=== PATIENT | female | born 1945 | race Two or more races ===

== ENCOUNTER 2018-01-16 23:06 | Inpatient (IN) | payer MEDICARE, OTHER ==
[~2018-01-16] VITALS: Ht 152.4 cm; Wt 41.7 kg
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
[2018-01-17] MEDS ORDERED: MAGNESIUM HYDROXIDE 30 ML UDC PO PRN
[2018-01-17] MEDS ORDERED: MAG HYDROX/AL HYDROX/SIMETH 30 ML UDC PO PRN
[2018-01-17] MEDS ORDERED: clonazePAM 0.5 MG TABLET PO PRN
[2018-01-17] MEDS ORDERED: ACETAMINOPHEN 325 MG TABLET PO PRN
--- NOTE | 2018-01-17 00:05 | NUR ---
GPS RN NOTE: PATIENT REQUESTED SNACKS AND GIVEN TURKEY SANDWICH, CRACKERS, AND APPLE JUICE. PATIENT THEN WAS ABLE TO SHOWER WITH ASSISTANCE OF TWO PRECISION LAYOUT WORKER. PATIENT THEN ASSISTED TO BED, WILL CONTINUE TO MONITOR FOR SAFETY.
[2018-01-17 02:39] VITALS: BP 117/71
[2018-01-17 08:00] VITALS: BP 127/77
[2018-01-17 10:35] LABS: ALANINE AMINOTRANSFERASE 29 U/L (12-78); ALBUMIN 2.2 g/dL (3.4-5.0); ALKALINE PHOSPHATASE 98 U/L (46-116); ASPARTATE AMINOTRANSFERASE 27 U/L (15-37); BILIRUBIN,TOTAL 0.7 mg/dL (0.2-1.0); CALCIUM, SERUM 8.1 mg/dL (8.5-10.1); CARBON DIOXIDE 28 mmol/L (21-32); CHLORIDE 100 mmol/L (98-107); CREATININE 0.9 mg/dL (0.6-1.3); GLUCOSE 149 mg/dL (74-106); POTASSIUM 3.8 mmol/L (3.5-5.1); SODIUM SERUM 135 mmol/L (136-145); TOTAL PROTEIN, SERUM 5.5 g/dL (6.4-8.2); UREA NITROGEN, BLOOD 9 mg/dL (7-18)
[2018-01-17 10:37] LABS: CHOLESTEROL 150 mg/dL (<200); HDL CHOLESTEROL 85 mg/dL (40-60); LDL 60 mg/dL (0-99); TRIGLYCERIDES 52 mg/dL (30-150)
[2018-01-17 13:50] LABS: BASOPHILS % (AUTO) 0.3 % (0.0-2.0); EOSINOPHILS % (AUTO) 0.4 % (0.0-6.0); HEMATOCRIT 42 % (33-45); HEMOGLOBIN 13.7 g/dL (11.5-14.8); MEAN CORPUSCULAR HEMOGLOBIN 35 PG (26.0-33.0); MEAN CORPUSCULAR HGB CONC 33 g/dl (31.0-36.0); MEAN CORPUSCULAR VOLUME 108 fL (82-100); MONOCYTES # (AUTO) 0.6 /CMM (0.1-1.30); MONOCYTES % (AUTO) 5.8 % (2.0-12.0); NEUTROPHILS # (AUTO) 7.2 /CMM (1.8-8.9); NEUTROPHILS % (AUTO) 73.5 % (43.0-81.0); PLATELET COUNT (AUTO) 285 /CMM (150-450); RDW COEFFICIENT OF VARIATION 15.4 (11.5-15.0); RED BLOOD CELL COUNT(AUTO) 3.89 MIL/uL (4.0-5.2); WHITE BLOOD COUNT (AUTO) 9.8 K/uL (4.3-11.0)
--- NOTE | 2018-01-17 14:47 | NUR ---
FRANKIE contacted Ellie JEFFERSON from [facility] Behavioral Health Crisis Team to request additional collateral information. Ellie provided FRANKIE with Davida Sosa [facility] socially responsible investment adviser [phone] who contacted crisis team for evaluation. Per Ellie, pt has been evicted from home and has no known family.
--- NOTE | 2018-01-17 14:55 | NUR ---
FRANKIE contacted Davida Sosa APS social media assistant [phone] for collateral information. Unable to reach FRANKIE left voicemail for call back. Addendum: 01/17/18 at 1542 by IMANI DAVID Davida Sosa is a pt assigned nurse through [facility] APS social media assistant is Ellie Ramirez [phone]. Addendum: 01/18/18 at 1601 by IMANI DAVID Davida Sosa Public Health Nurse
--- NOTE | 2018-01-17 15:41 | NUR ---
INITIAL DISCHARGE NOTE: Pt was evicted from home on 01/16/18 and is now homeless per [facility] social media intern and [facility] behavioral Health Crisis Team. Pt needs placement, SW will help form a safe and proper discharge in collaboration with .
[2018-01-17 16:00] VITALS: BP 117/73
--- NOTE | 2018-01-17 16:01 | NUR ---
RN-CO: JOSH VAUGHAN MADE AWARE OF PT'S BNP.
--- NOTE | 2018-01-17 18:47 | NUR ---
GPS/RN PATIENT REFUSED SHOWER THROUGHOUT SHIFT.
--- NOTE | 2018-01-17 19:36 | NUR ---
PATIENT REFUSED AN ECHOCARDIOGRAM AND DUPLEX VENOUS LOWER EXT BI TESTS. INFORMED ATTENDING NURSE (RAMILA). NURSE ADVISED TO TRY AGAIN TOMORROW.
[2018-01-17 20:00] VITALS: BP 108/64
[2018-01-17] MEDS: OLANZAPINE 5 MG/TAB.RAPDIS PO SCH (21:14)
[2018-01-18 08:30] VITALS: BP 112/63
--- NOTE | 2018-01-18 09:21 | NUR ---
RN-CO: CALLED DR LEROY FOR NEURO CONSULT. SPOKE W/ ELVIS.
--- NOTE | 2018-01-18 10:58 | NUR ---
[facility] Address: [address] [place] [address] fax: .
[2018-01-18 12:31] LABS: THYROID STIMULATING HORMONE 4.21 uIU/mL (0.358-3.74)
--- NOTE | 2018-01-18 16:01 | NUR ---
SW was contacted by pts APS perinatal social worker is Ellie aRmirez [phone] who informed SW that pt needs SSI reinstated once she is placed at a SNF. SW informed APS FRANKIE that she would notify her with discharge plan.
[2018-01-18 16:22] VITALS: BP 135/81
[2018-01-18 20:00] VITALS: BP 110/69
[2018-01-18] MEDS: OLANZAPINE 5 MG/TAB.RAPDIS PO SCH (21:11)
--- NOTE | 2018-01-19 07:07 | NUR ---
NEED URINE SPECIMEN, UNABLE TO COLLECT SPECIMEN TO THIS TIME. PATIENT BARELY UNDERSTANDS AND FOLLOW-INSTRUCTIONS. PATIENT IS A/O X1 AND CONFUSED. SPECIMEN CUP AT THE BEDSIDE. REPORTED TO DAY RN TO FOLLOW-UP.
[2018-01-19 08:00] VITALS: BP 121/63
[2018-01-19 16:13] VITALS: BP 116/70
[2018-01-19 17:35] LABS: APPEARANCE,URINE CLOUDY (CLEAR); BILIRUBIN,URINE NEGATIVE (NEGATIVE); BLOOD, URINE TRACE-INTA Ery/uL (NEGATIVE); COLOR,URINE YELLOW (YELLOW); KETONES,URINE NEGATIVE (NEGATIVE); LEUKOCYTE ESTERASE ,URINE 3+ (NEGATIVE); NITRITE, URINE NEGATIVE (NEGATIVE); PROTEIN,URINE NEGATIVE (NEGATIVE); UGLUCOSE NEGATIVE (NEGATIVE); UROBILINOGEN,URINE 0.2 EU/dL (0.2)
[2018-01-19 18:02] LABS: BACTERIA,URINE 4+ /HPF (None Seen); SQUAMOUS EPITHELIAL CELL,UR 0-2 /HPF (None Seen); WBC,URINE 51-80 /HPF (0-3)
--- NOTE | 2018-01-19 18:47 | NUR ---
GPS/RN-NOTES JOSH VAUGHAN MADE AWARE OF PATIENT URINE RESULTS WITH THE VERBAL ORDER OF KEFLEX 500MG P.O BID X 7 DAYS. NOTED AND CARRIED OUT.
[2018-01-19 20:00] VITALS: BP 100/52
[2018-01-19] MEDS: CEPHALEXIN MONOHYDRATE 250 MG CAPSULE PO SCH (20:04)
[2018-01-19] MEDS: OLANZAPINE 5 MG/TAB.RAPDIS PO SCH (21:34)
--- NOTE | 2018-01-20 01:34 | NUR ---
Pt has been confused at times, fragmented, paranoid, evasive, & guarded on approach. She needed multiple promptings to take her noc po meds last night.
[2018-01-20 08:00] VITALS: BP 109/59
[2018-01-20] MEDS ORDERED: CEPHALEXIN MONOHYDRATE 250 MG CAPSULE PO SCH (09:00)
[2018-01-20] MEDS: CEPHALEXIN MONOHYDRATE 250 MG CAPSULE PO SCH ×2 (09:03→17:01)
--- NOTE | 2018-01-20 10:04 | NUR ---
PT REMAINS CONFUSED, GUARDED AND PARANOID AT TIMES, REFUSED TO TAKE MEDICATION WITH WATER, BUT TOOK WITH TEA. WAS INCONTINENT OF URINE OVERNIGHT. NONPITTING, 3 + EDEMA BOTH FEET AND 2+ EDEMA RIGHT HAND. WILL NOTIFY MD. PATIENT WAS IN TV ROOM FOR BREAKFAST, SAT IN CHAIR FOR A WHILE THEN PER REQUEST WAS ASSISTED TO BED TO AT 1000.
[2018-01-20] MEDS ORDERED: FUROSEMIDE 20 MG TABLET PO ONE (14:00)
--- NOTE | 2018-01-20 15:24 | NUR ---
PATIENT ATE LATE LUNCH IN ROOM AND RECEIVED LASIX PER MD ORDER X 1 AT 1345. BP NOW 117/58 AND EDEMA DECREASING IN HAND AND FEET. PATIENT IN BED AWAKE AND DENIES COMPLAINTS.
[2018-01-20 16:14] VITALS: BP 117/58
[2018-01-20 20:08] VITALS: BP 116/69
[2018-01-20] MEDS: OLANZAPINE 5 MG/TAB.RAPDIS PO SCH (21:43)
[2018-01-21 08:00] VITALS: BP 110/56
--- NOTE | 2018-01-21 08:30 | NUR ---
GPS RN NOTE: RECEIVED PATIENT AWAKE AND LYING BED ALERT AND ORIENTED X 1-2. NO S/S OR COMPLAINTS OF PAIN AT THIS TIME. PATIENT DISPLAYING NO S/S OF APPARENT DISTRESS AT THIS TIME. PATIENT BREATHING IS UNLABORED WITH EQUAL RISE AND FALL OF THE CHEST. EDEMA IN HANDS AND FEET STILL DIMINISHED SINCE YESTERDAY. PT COOPERATIVE AND MED COMPLIANT AND EATING MEALS. PATIENT DENIES SUICIDE IDEATIONS AND HOMICIDAL IDEATIONS AT THIS TIME. PATIENT IS AMBULATORY WITH ESCORT AND HAS NO OTHER NEEDS AT THIS TIME. PATIENT EDUCATED ON THE USE OF THE CALL BAUTISTA. PATIENT BED SIDE RAILS UP X2 FOR SAFETY, BED IS LOCKED AND LOW WILL CONTINUE TO MONITOR AND MAINTAIN AND MAINTAIN SAFETY.
[2018-01-21] MEDS: CEPHALEXIN MONOHYDRATE 250 MG CAPSULE PO SCH ×2 (08:41→17:33)
[2018-01-21] MEDS ORDERED: FUROSEMIDE 20 MG TABLET PO ONE (14:00)
--- NOTE | 2018-01-21 14:09 | NUR ---
SW spoke to Ant, Residential Treatment Staff at [facility], [address] [place] [address] fax: and confirmed pts acceptance to facility. SW will follow up with treating team to ensure pt is safely and adequately discharged.
[2018-01-21 16:00] VITALS: BP 124/68
[2018-01-21] MEDS: OLANZAPINE 5 MG/TAB.RAPDIS PO SCH (17:36)
[2018-01-21 20:20] VITALS: BP 132/65
[2018-01-21] MEDS: TEMAZEPAM 7.5 MG CAPSULE PO PRN (20:58)
[2018-01-22 08:15] VITALS: BP 119/74
[2018-01-22] MEDS: OLANZAPINE 5 MG/TAB.RAPDIS PO SCH ×2 (10:01→17:32)
[2018-01-22] MEDS: CEPHALEXIN MONOHYDRATE 250 MG CAPSULE PO SCH ×2 (10:01→17:31)
[2018-01-22 16:37] VITALS: BP 131/73
--- NOTE | 2018-01-22 18:30 | NUR ---
COOPERATIVE,COMPLIANT.NO COMPLAINTS.
[2018-01-22 20:32] VITALS: BP 132/73
[2018-01-22] MEDS: TEMAZEPAM 7.5 MG CAPSULE PO PRN (20:43)
--- NOTE | 2018-01-22 21:06 | NUR ---
TEMAZEPAM 7.5 MG CAP PO GIVEN FOR SLEEP.
[2018-01-22] MEDS: Z GUARD REMEDY 2 OZ OINT TP SCH (21:23)
[2018-01-23 07:19] LABS: CALCIUM, SERUM 8.2 mg/dL (8.5-10.1); CARBON DIOXIDE 32 mmol/L (21-32); CHLORIDE 110 mmol/L (98-107); CREATININE 0.7 mg/dL (0.6-1.3); GLUCOSE 93 mg/dL (74-106); POTASSIUM 3.6 mmol/L (3.5-5.1); SODIUM SERUM 145 mmol/L (136-145); UREA NITROGEN, BLOOD 11 mg/dL (7-18)
[2018-01-23 08:27] VITALS: BP 142/69
[2018-01-23] MEDS: OLANZAPINE 5 MG/TAB.RAPDIS PO SCH ×2 (09:07→17:12)
[2018-01-23] MEDS: CEPHALEXIN MONOHYDRATE 250 MG CAPSULE PO SCH ×2 (09:07→17:12)
[2018-01-23] MEDS: Z GUARD REMEDY 2 OZ OINT TP SCH (09:07)
--- NOTE | 2018-01-23 12:00 | NUR ---
DR. CASE IN TO SEE PT.
[2018-01-23 15:57] VITALS: BP 136/70
--- NOTE | 2018-01-23 17:57 | NUR ---
NO CHANGE IN STATUS.
--- NOTE | 2018-01-23 19:30 | NUR ---
GPS RN NOTE, RECEIVED PATIENT AWAKE AND IN BED, NO S/S OR COMPLAINTS OF PAIN AT THIS TIME. PATIENT DISPLAYING NO S/S OF APPARENT DISTRESS AT THIS TIME. PATIENT BREATHING IS UNLABORED WITH EQUAL RISE AND FALL OF THE CHEST. PATIENT ALERT AND ORIENTED X 1 -2 WITH A SPO2 95%. PATIENT IS COMPLIANT WITH MEDS , MOSTLY CZECH SPEAKING, DISORGANIZED, CONFUSED, ANXIOUS, COOPERATIVE, NEEDS REORIENTATION. PATIENT DENIES SUICIDE IDEATIONS AND HOMICIDAL IDEATIONS AT THIS TIME. PATIENT ASSISTED WITH TURNING AND REPOSITIONING Q2HR AND PRN FOR COMFORT AND CIRCULATION. PATIENT HAS NO NEEDS AT THIS TIME. PATIENT EDUCATED ON THE USE OF THE CALL BAUTISTA. PATIENT BED SIDE RAILS UP X2 FOR SAFETY, BED IS LOCKED AND LOW WILL CONTINUE TO MONITOR AND MAINTAIN AND MAINTAIN SAFETY.
[2018-01-23 20:44] VITALS: BP 132/79
[2018-01-24 07:59] VITALS: BP 133/77
[2018-01-24] MEDS: OLANZAPINE 5 MG/TAB.RAPDIS PO SCH ×2 (08:49→16:09)
[2018-01-24] MEDS: CEPHALEXIN MONOHYDRATE 250 MG CAPSULE PO SCH (08:49)
[2018-01-24] MEDS: Z GUARD REMEDY 2 OZ OINT TP SCH (08:50)
[2018-01-24 16:00] VITALS: BP 139/74
[2018-01-24 20:00] VITALS: BP 131/77
--- NOTE | 2018-01-24 20:00 | NUR ---
GPS RN NOTE, RECEIVED PATIENT ASLEEP IN BED EASILY AWAKENS TO NAME, ALERT AND ORIENTED X 1 -2 NO S/S OR COMPLAINTS OF PAIN AT THIS TIME, NO S/S OF APPARENT DISTRESS. PATIENT BREATHING IS UNLABORED WITH EQUAL RISE AND FALL OF THE CHEST. WITH A SPO2 95%. PATIENT IS COMPLIANT WITH MEDS AND AMBULATORY. DISORGANIZED, ISOLATIVE, CALM, COOPERATIVE, NEEDS REORIENTATION. DENIES SUICIDE IDEATIONS AND HOMICIDAL IDEATIONS AT THIS TIME. PATIENT ASSISTED WITH TURNING AND REPOSITIONING Q2HR AND PRN FOR COMFORT AND CIRCULATION. PATIENT HAS NO NEEDS AT THIS TIME. PATIENT EDUCATED ON THE USE OF THE CALL BAUTISTA. PATIENT BED SIDE RAILS UP X2 FOR SAFETY, BED IS LOCKED AND LOW WILL CONTINUE TO MONITOR Q15 FOR SAFETY.
[2018-01-25 07:07] LABS: CALCIUM, SERUM 8.4 mg/dL (8.5-10.1); CARBON DIOXIDE 31 mmol/L (21-32); CHLORIDE 107 mmol/L (98-107); CREATININE 0.7 mg/dL (0.6-1.3); GLUCOSE 107 mg/dL (74-106); POTASSIUM 4.1 mmol/L (3.5-5.1); SODIUM SERUM 144 mmol/L (136-145); UREA NITROGEN, BLOOD 15 mg/dL (7-18)
[2018-01-25 08:36] VITALS: BP 121/63
[2018-01-25] MEDS: OLANZAPINE 5 MG/TAB.RAPDIS PO SCH ×2 (08:43→16:34)
[2018-01-25] MEDS: Z GUARD REMEDY 2 OZ OINT TP SCH (08:44)
--- NOTE | 2018-01-25 15:49 | NUR ---
Pt was scheduled to discharge to [facility] on this date however facility denied stating they did not have a bed for her. SW spoke to Ant, Keyboard Specialist who apologized stating the facility had not notified him of the change and agreed to find placement for pt. Pt was accepted to [facility] per Nancy . Pt to discharge on 01/28/18. SW will follow up and make arrangements.
[2018-01-25 16:00] VITALS: BP 120/72
[2018-01-25 20:00] VITALS: BP 126/69
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
--- NOTE | 2018-01-26 06:15 | NUR ---
NO FURTHER SKIN BREAKDOWN NOTED AT THIS TIME, NO SWELLING NOTED. ROM BOTH BUE AND BLE SATISFACTORY
[2018-01-26 08:00] VITALS: BP 110/54
[2018-01-26] MEDS: OLANZAPINE 5 MG/TAB.RAPDIS PO SCH ×2 (08:18→17:17)
[2018-01-26] MEDS: Z GUARD REMEDY 2 OZ OINT TP SCH (08:19)
[2018-01-26] MEDS: BACITRACIN ZINC OINT PACKET 1 EA PACKET TP SCH (11:43)
--- NOTE | 2018-01-26 11:45 | NUR ---
AM RN NOTE Pt sitting in the chair, no acute distress noted. Bacitracin applied on abrasion on left lower back/ flank as ordered. No other skin findings noted at this time. Pt denied any pain when assessed. Will continue to monitor.
[2018-01-26 16:00] VITALS: BP 115/74
--- NOTE | 2018-01-26 16:57 | NUR ---
AM RN NOTE Pt seen and assessed by Dr. Foster made aware about fall incident. Pt denies any pain or discomfort at this time. ROM WNL.
--- NOTE | 2018-01-27 00:50 | NUR ---
Pt has been fragmented, guarded on approach, loosely associating her thoughts, & anxious but redirectable.
[2018-01-27 08:00] VITALS: BP 134/69
[2018-01-27] MEDS: Z GUARD REMEDY 2 OZ OINT TP SCH (08:57)
[2018-01-27] MEDS: OLANZAPINE 5 MG/TAB.RAPDIS PO SCH ×2 (08:57→16:34)
[2018-01-27] MEDS: BACITRACIN ZINC OINT PACKET 1 EA PACKET TP SCH (09:01)
[2018-01-27 16:00] VITALS: BP 131/62
[2018-01-27 20:30] VITALS: BP 107/61
[2018-01-27] MEDS: TEMAZEPAM 7.5 MG CAPSULE PO PRN (21:17)
[2018-01-28] MEDS: OLANZAPINE 5 MG/TAB.RAPDIS PO SCH (08:11)
[2018-01-28] MEDS: Z GUARD REMEDY 2 OZ OINT TP SCH (08:12)
[2018-01-28] MEDS: BACITRACIN ZINC OINT PACKET 1 EA PACKET TP SCH (08:12)
[2018-01-28 09:01] VITALS: BP 113/63
--- NOTE | 2018-01-28 15:23 | NUR ---
GPS ELECTRONIC WARFARE SPECIALIST NOTE: PT DISCHARGE TO [facility] [address] [facility] [address] VIA [facility] TR[facility]. PATIENT IN STABLE CONDITION NO S/S DISTRESS NOTED PT DENIES SI/HI,VSS, PT AMBULATORY WITH ASSIST. SKIN CHECKED PICTURES DONE BY LETTER SORTING MACHINE OPERATOR RN, PT COMPLIANT WITH MEDICATIONS AND TX . REPORT GIVEN TO SENIOR MORTGAGE UNDERWRITER IN THE FACILITY . DR YOON AWARE T.O. CONTINUE MEDICATIONS DR CASE SEEN AND EXAMINE PT.
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
[2018-01-28] MEDS ORDERED: OLANZAPINE 5 MG/TAB.RAPDIS PO SCH (17:00)
== END 2018-01-28 15:20 | DRG 885 ==
LOC: GPS 23:06
PROVIDERS: ADMIT Psychiatry & Neurology Psychiatry; ATTEND Nurse Practitioner Acute Care
DX: F29 Unspecified psychosis not due to a substance or known physiological condition (principal); F02.80 Dementia in other diseases classified elsewhere, unspecified severity, without behavioral disturbance, psychotic disturbance, mood disturbance, and anxiety; G92 Toxic encephalopathy; N39.0 Urinary tract infection, site not specified; I50.30 Unspecified diastolic (congestive) heart failure; E87.1 Hypo-osmolality and hyponatremia; E44.0 Moderate protein-calorie malnutrition; Z68.1 Body mass index [BMI] 19.9 or less, adult; F41.9 Anxiety disorder, unspecified; B96.1 Klebsiella pneumoniae [K. pneumoniae] as the cause of diseases classified elsewhere; E86.1 Hypovolemia; E03.9 Hypothyroidism, unspecified; M71.21 Synovial cyst of popliteal space [Baker], right knee; Z59.0 Homelessness; S30.810A Abrasion of lower back and pelvis, initial encounter; Y92.89 Other specified places as the place of occurrence of the external cause; W18.30XA Fall on same level, unspecified, initial encounter; F20.9 Schizophrenia, unspecified; E86.0 Dehydration; G30.9 Alzheimer's disease, unspecified
CPT/HCPCS: 36415; 70450-TC; 80048-TC; 80053-TC; 80061-TC; 81000-TC; 82140-TC; 83880; 84443-TC; 85025-TC; 87086-TC; 87186-TC; 93307-TC; 93970-TC; A4606; Z7610